=== PATIENT | female | born 1955 | race Caucasian/White ===

== ENCOUNTER 2019-01-07 12:28 | Outpatient (REF) | payer MEDICARE, SELFPAY ==
[2019-01-07 22:09] LABS: Anion Gap 8.4 mmol/L (3-11); BUN 14 mg/dL (7-18); CO2 29.6 mmol/L (21.0-32.0); CREATININE 0.91 mg/dL (0.55-1.02); Calcium 10.3 mg/dL (8.5-10.1); Chloride 103 mmol/L (98-107); Glucose 100 mg/dL (74-106); Potassium 4.6 mmol/L (3.5-5.1); Sodium 141 mmol/L (136-145)
== END 2019-01-07 12:48 ==
LOC: NCHCN 12:28
PROVIDERS: PCP Family Medicine; Visit Provider Family Medicine
DX: R25.2 Cramp and spasm (principal)
CPT/HCPCS: 80048

== ENCOUNTER 2019-07-23 21:06 | Outpatient (REF) | payer MEDICARE, SELFPAY ==
[2019-07-23 21:46] LABS: Calcium 9.8 mg/dL (8.5-10.1)
== END 2019-07-23 21:26 ==
LOC: NCHCN 21:06
PROVIDERS: PCP Family Medicine; Visit Provider Family Medicine
DX: E83.52 Hypercalcemia (principal)
CPT/HCPCS: 82310

== ENCOUNTER 2021-03-07 14:24 | Outpatient (REF) | payer MEDICARE, SELFPAY ==
[2021-03-07 21:20] LABS: Abs Immature Grans 0.03 10^3/uL (0.0-0.06); Absolute Basophil Count 0.06 10^3/uL (0.0-0.2); Absolute Eosinophil Count 0.17 10^3/uL (0.0-0.7); Absolute Lymphocyte Count 1.88 10^3/uL (1.2-3.4); Absolute Monocyte Count 0.45 10^3/uL (0.1-0.8); Absolute Neutrophil Count 3.71 10^3/uL (1.2-6.7); Eosinophils % 2.7; HCT 43.9 % (36.0-46.0); HGB 14.2 g/dL (11.2-15.7); Immature Grans % 0.5; Lymphocytes % 29.8; MCH 31.9 pg (27.0-33.0); MCHC 32.3 % (32.0-36.0); MCV 98.7 fL (80-95); MPV 10.1 fL (8.0-11.0); Monocytes % 7.1; Neutrophils % 58.9; Nucleated RBC 0 %; Platelet Count 294 10^3/uL (130-400); RBC 4.45 10^6/uL (3.93-5.22); RDW 12.2 % (11.7-14.6); RDW-SD 44.5 fL
[2021-03-07 21:31] LABS: ESR 12 mm/hr (0-30)
[2021-03-07 21:42] LABS: ALT 28 U/L (14-59); AST 22 U/L (15-37); Albumin 3.6 g/dL (3.4-5.0); Alkaline Phosphatase 94 U/L (46-116); Anion Gap 8.2 mmol/L (3-11); BUN 8 mg/dL (7-18); Bilirubin, Total 0.2 mg/dL (0.2-1.0); C-Reactive Protein 0.24 mg/dL (0.0-0.3); CO2 28.8 mmol/L (21.0-32.0); CREATININE 0.8 mg/dL (0.55-1.02); Calcium 9.3 mg/dL (8.5-10.1); Chloride 102 mmol/L (98-107); Glucose 91 mg/dL (74-106); Potassium 4.3 mmol/L (3.5-5.1); Sodium 139 mmol/L (136-145); TSH (W/Ref FT4) 2.56 uIU/mL (0.36-3.74); Total Protein 6.6 g/dL (6.4-8.2)
== END 2021-03-07 14:25 | disposition home or self-care (01) ==
LOC: NCHCN 14:24
PROVIDERS: PCP Family Medicine; Visit Provider Family Medicine
DX: R53.83 Other fatigue (principal); R10.2 Pelvic and perineal pain
CPT/HCPCS: 80053; 85652; 84443; 85025; 86140

== ENCOUNTER 2022-12-21 19:17 | Outpatient (REF) | payer MEDICARE, SELFPAY ==
--- OUTSIDE RECORDS SUMMARY | 2022-12-21 19:19 | XMS_ITS | CCD ---
Author Name Unknown Address [address] [place] [address] [id number] Organization Unknown Address [address], [place] [id number] Care Team Providers Care Associate Financial Analyst Name Role Phone DUGLAS BARBA Attending Physician [phone] Vital Signs Unknown or Not Available. Allergies Allergy Code Allergy Type Reaction Status CODEINE 2670 Drug allergy Active MORPHINE 7071 Drug allergy ITCHING Active Procedures Unknown or Not Available. History of Immunizations Unknown or Not Available. Problems Unknown or Not Available. Results Unknown or Not Available. Active Medications Unknown or Not Available. Medications Administered During Visit Unknown or Not Available. Encounters Encounter Diagnosis Diagnosis Code Start Date Screening mammography [id number] 05/19/2022 Social History Smoking Status Code Start Date End Date Former smoker [id number] Patient Decision Aids Unknown or Not Available. Discharge Instructions You were admitted to [facility] on 05/19/2022 11:18 with a principal diagnosis of Encounter for screening mammogram for malignant neoplasm of breast You were discharged from [facility] on 05/19/2022 11:18 Should you have any questions prior to discharge, please contact a member of your healthcare team. If you have left the hospital and have any questions, please contact your primary care physician. Chief Complaint and Reason For Visit Unknown or Not Available. Function Status Unknown or Not Available. Plan of Care Unknown or Not Available. Referral/Transition of Care Unknown or Not Available.
--- OUTSIDE RECORDS SUMMARY | 2022-12-21 19:20 | XMS_ITS | CCD ---
Author Name Unknown Address [address] [place] [id number] Organization Unknown Address [address] [place] [address] [phone] Care Team Providers Care Assorter Name Role Phone DUGLAS BARBA Attending Physician [phone] Vital Signs Unknown or Not Available. Allergies Allergy Code Allergy Type Reaction Status CODEINE 2670 Drug allergy Active MORPHINE 7027 Drug allergy ITCHING Active Procedures Unknown or Not Available. History of Immunizations Unknown or Not Available. Problems Unknown or Not Available. Results Unknown or Not Available. Active Medications Unknown or Not Available. Medications Administered During Visit Unknown or Not Available. Encounters Encounter Diagnosis Diagnosis Code Start Date Screening mammography [id number] 03/10/2021 Social History Smoking Status Code Start Date End Date Former smoker [id number] Patient Decision Aids Unknown or Not Available. Discharge Instructions You were admitted to [facility] on 03/10/2021 11:30 with a principal diagnosis of Encounter for screening mammogram for malignant neoplasm of breast You were discharged from [facility] on 03/10/2021 11:30 Should you have any questions prior to discharge, please contact a member of your healthcare team. If you have left the hospital and have any questions, please contact your primary care physician. Chief Complaint and Reason For Visit Chief Complaint Date of Onset SCR Function Status Unknown or Not Available. Plan of Care Unknown or Not Available. Referral/Transition of Care Unknown or Not Available.
[2022-12-21 21:03] LABS: HCT 46.5 % (36.0-46.0); HGB 15.2 g/dL (11.2-15.7); MCH 31.8 pg (27.0-33.0); MCHC 32.7 % (32.0-36.0); MCV 97 fL (80-95); Platelet Count 295 10^3/uL (130-400); RBC 4.78 10^6/uL (3.93-5.22); RDW-SD 46.9 fL; WBC 6.81 10^3/uL (4.4-10.8)
[2022-12-21 21:20] LABS: Anion Gap 8.1 mmol/L (3-11); BUN 8 mg/dL (7-18); CO2 27.9 mmol/L (21.0-32.0); CREATININE 0.8 mg/dL (0.55-1.02); Calcium 10.2 mg/dL (8.5-10.1); Chloride 103 mmol/L (98-107); Estimated GFR 80.21 (mL/min/1.73m2); Glucose 99 mg/dL (74-106); Potassium 4.5 mmol/L (3.5-5.1); Sodium 139 mmol/L (136-145); TSH 1.46 uIU/mL (0.36-3.74)
== END 2022-12-21 19:18 | disposition home or self-care (01) ==
LOC: NCHCN 19:17
PROVIDERS: PCP Family Medicine; Visit Provider Family Medicine
DX: R53.83 Other fatigue (principal); J44.9 Chronic obstructive pulmonary disease, unspecified; R25.1 Tremor, unspecified
CPT/HCPCS: 80048; 85027; 84443

== ENCOUNTER 2023-03-22 14:09 | Outpatient (REF) | payer MEDICARE, SELFPAY ==
[2023-03-22 21:33] LABS: Calculated LDL 224 mg/dL (<100); Cholesterol 320 mg/dL (<200); Folate 15.2 ng/mL (8.6-20.0); HDL Cholesterol 68 mg/dL (40-60); Triglyceride 142 mg/dL (<150); Vitamin B12 308 pg/mL (193-986)
== END 2023-03-22 14:10 | disposition home or self-care (01) ==
LOC: NCHCN 14:09
PROVIDERS: PCP Family Medicine; Visit Provider Family Medicine
DX: Z00.00 Encounter for general adult medical examination without abnormal findings (principal)
CPT/HCPCS: 80061; 82607; 82746

== ENCOUNTER 2024-01-08 15:55 | Outpatient (REF) | payer MEDICARE, SELFPAY ==
[2024-01-08 21:47] LABS: Anion Gap 9.7 mmol/L (3-11); BUN 11 mg/dL (7-18); CO2 28.3 mmol/L (21.0-32.0); Calcium 10.1 mg/dL (8.5-10.1); Chloride 105 mmol/L (98-107); Estimated GFR 60.98 (mL/min/1.73m2); Glucose 89 mg/dL (74-106); Potassium 5.3 mmol/L (3.5-5.1); Sodium 143 mmol/L (136-145)
== END 2024-01-08 15:56 | disposition home or self-care (01) ==
LOC: NCHCN 15:55
PROVIDERS: PCP Family Medicine; Visit Provider Family Medicine
DX: I10 Essential (primary) hypertension (principal)
CPT/HCPCS: 80048

== ENCOUNTER 2024-05-27 15:55 | Outpatient (REF) | payer MEDICARE, SELFPAY ==
[2024-05-27 22:09] LABS: Anion Gap 7.1 mmol/L (3-11); BUN 13 mg/dL (7-18); CO2 29.9 mmol/L (21.0-32.0); Calcium 9.6 mg/dL (8.5-10.1); Chloride 104 mmol/L (98-107); Estimated GFR 60.61 (mL/min/1.73m2); Glucose 99 mg/dL (74-106); Potassium 4.3 mmol/L (3.5-5.1); Sodium 141 mmol/L (136-145)
== END 2024-05-27 15:56 | disposition home or self-care (01) ==
LOC: NCHCN 15:55
PROVIDERS: PCP Family Medicine; Visit Provider Family Medicine
DX: I10 Essential (primary) hypertension (principal)
CPT/HCPCS: 80048